=== PATIENT | female | born 1970 | race Caucasian/White ===

== ENCOUNTER 2017-09-30 15:10 | Emergency (ER) | payer BC ==
--- NOTE | 2017-09-30 19:08 | UC ---
Complaint Female HPI - HPI Summary HPI Summary: C/O lower abdominal pain with UTI symptoms over the last 4 days. Took 2 left over macrobid on sunday along with Azo without relief - History Of Current Complaint Chief Complaint: UCGU Stated Complaint: URINARY Time Seen by Provider: 09/30/17 19:01 Hx Obtained From: Patient Hx Last Menstrual Period: 09/25/17 ?: No Onset/Duration: Sudden Onset, Lasting Days - 4, Still Present Severity Initially: Mild Severity Currently: Moderate Character: Cramping Aggravating Factor(s): Urination Alleviating Factor(s): Meds Associated Signs And Symptoms: Negative: Fever, Back Pain Related Hx: Similar Episode/Dx as: - UTI - Allergies/Home Medications Allergies/Adverse Reactions: Allergies Allergy/AdvReac Type Severity Reaction Status Date / Time Moxifloxacin [From Avelox] AdvReac Severe Diarrhea Verified 09/30/17 18:54 Home Medications: Home Medications Biotin 5 mg PO 09/30/17 [History] Calcium 600 mg PO 09/30/17 [History] Cholecalciferol [Vitamin D] 1,000 unit PO 09/30/17 [History] Cranberry-Vitamin C [Azo Cranbery Urinary Trac 250-60 mg] 1 cap PO 09/30/17 [ History] Cyanocobalamin [Vitamin B-12] 1,000 mcg PO 09/30/17 [History] Escitalopram Oxalate [Lexapro 10 mg] 10 mg PO DAILY 09/30/17 [History Confirmed 09/30/17] Multiple Vitamin [Multi Vitamin] 1 tab PO 09/30/17 [History] Naproxen [Naprosyn 500 mg] 500 mg PO ONCE PRN 09/30/17 [History Confirmed ] Omeprazole 40 mg PO 09/30/17 [History] PMH/Surg Hx/FS Hx/Imm Hx Psychological History: Anxiety, Depression - Surgical History Surgical History: Yes Surgery Procedure, Year, and Place: gastric bypass 2012. L ovarian cysts removed. - Family History Known Family History: Positive: Hypertension Negative: Cardiac Disease, Diabetes - Social History Occupation: Employed Full-time Lives: With Family Alcohol Use: Occasionally Substance Use Type: None Smoking Status (MU): Never Smoked Tobacco Review of Systems Genitourinary: Dysuria, Frequency, Urgency Is Patient Immunocompromised?: No All Other Systems Reviewed And Are Negative: Yes Physical Exam Triage Information Reviewed: Yes Appearance: Well-Appearing, No Pain Distress, Well-Nourished Vital Signs: Initial Vital Signs Temp 98.6 F 09/30/17 18:46 Pulse 68 09/30/17 18:46 Resp 16 09/30/17 18:46 BP 116/62 09/30/17 18:46 Pulse Ox 98 09/30/17 18:46 Vital Signs Reviewed: Yes Eyes: Positive: Conjunctiva Clear Neck exam: Normal Respiratory Exam: Normal Cardiovascular Exam: Normal Abdomen Description: Negative: Nontender - suprapubic tenderness., CVA Tenderness (R), CVA Tenderness (L) Bowel Sounds: Positive: Present Musculoskeletal Exam: Normal Neurological Exam: Normal Psychological Exam: Normal Skin Exam: Normal Complaint Female Dx - Differential Dx/Diagnosis Differential Diagnosis/HQI/PQRI: Appendicitis, Endometriosis, Ureteral Stone, Urinary Tract Infection Provider Diagnoses: Acute cystitis without hematuria Discharge - Discharge Plan Condition: Stable Disposition: HOME Prescriptions: Sulfamethox/Trimethoprim DS* [Bactrim DS 800/160 TAB*] 1 tab PO BID #10 tab Patient Education Materials: Urinary Tract Infection in Women (ED), Sulfamethoxazole/Trimethoprim (By mouth) Referrals: Jefferson Broussard MD [Primary Care Provider] -
[2017-09-30] MEDS ORDERED: Sulfamethox/Trimethoprim DS 800/160* TAB PO ONE (19:09)
== END 2017-09-30 19:19 | disposition home or self-care (01) ==
LOC: UCCORT 15:10
DX: N30.00 Acute cystitis without hematuria (principal); F41.8 Other specified anxiety disorders; Z72.89 Other problems related to lifestyle
CPT/HCPCS: 87086; 99202; A9270-GY; G0463

== ENCOUNTER 2017-10-18 12:14 | Emergency (ER) | payer BC ==
[2017-10-18 15:38] VITALS: BP 124/78
--- NOTE | 2017-10-18 15:40 | UC ---
Complaint Female HPI - HPI Summary HPI Summary: 47F presents with dysuria and suprapubic pain for past two days. She has history of uti and states that feels the same. She denies any fever. She denies any nausea or vomiting. She denies any flank pain. She denies any vaginal discharge or chance has std. She took a dose of azo this morning which helped with the pain. She states she has been getting more frequent uti recently. She denies any diarrhea or constipation. medication reviewed - History Of Current Complaint Chief Complaint: UCGI Stated Complaint: URINARY Hx Last Menstrual Period: 09/25/17 Pain Intensity: 0 - Allergies/Home Medications Allergies/Adverse Reactions: Allergies Allergy/AdvReac Type Severity Reaction Status Date / Time moxifloxacin [From Avelox] Allergy Diarrhea Verified 10/18/17 15:35 PMH/Surg Hx/FS Hx/Imm Hx Endocrine History: Other Other Endocrine History: no DM Psychological History: Depression - Surgical History Surgical History: Yes Surgery Procedure, Year, and Place: gastric bypass 2012. L ovarian cysts removed. - Family History Known Family History: Positive: Hypertension Negative: Cardiac Disease, Diabetes - Social History Alcohol Use: Occasionally Substance Use Type: None Smoking Status (MU): Never Smoked Tobacco Review of Systems Constitutional: Negative Respiratory: Negative Cardiovascular: Negative Genitourinary: Dysuria, Urgency All Other Systems Reviewed And Are Negative: Yes Physical Exam Triage Information Reviewed: Yes Appearance: Well-Appearing Vital Signs: Initial Vital Signs Temp 98 F 10/18/17 15:33 Pulse 63 10/18/17 15:33 Resp 16 10/18/17 15:33 BP 124/78 10/18/17 15:33 Pulse Ox 100 10/18/17 15:33 Vital Signs Reviewed: Yes Eye Exam: Normal Respiratory: Positive: Lungs clear, Normal breath sounds Cardiovascular: Positive: RRR Abdomen Description: Positive: Nontender, Soft Bowel Sounds: Positive: Present Musculoskeletal Exam: Normal Neurological Exam: Normal Psychological Exam: Normal Skin Exam: Normal Complaint Female Dx - Course Course Of Treatment: 47F presents with dysuria and suprapubic pain for past two days. She has history of uti and states that feels the same. She denies any fever. She denies any nausea or vomiting. She denies any flank pain. She denies any vaginal discharge or chance has std. She took a dose of azo this morning which helped with the pain. She states she has been getting more frequent uti recently. She denies any diarrhea or constipation. on exam nontender abdomen, neg CVA tenderness. sent took azo will send for culture and treat presumptively. she denies any chance she is . will treat with bactrim. patient understand and agrees with plan. - Differential Dx/Diagnosis Differential Diagnosis/HQI/PQRI: Pelvic Inflammatory Disease, Sexually Transmitted Disease, Urinary Tract Infection Provider Diagnoses: uti Discharge - Discharge Plan Condition: Good Disposition: HOME Prescriptions: Phenazopyridine 200 mg (NF) [Pyridium 200 MG tab *] 200 mg PO TID #5 tab Sulfamethox/Trimethoprim DS* [Bactrim DS 800/160 TAB*] 1 tab PO BID #9 tab Patient Education Materials: Urinary Tract Infection in Women (ED) Referrals: Jeffesron Broussard MD [Primary Care Provider] - Jeromy Leyva MD [Medical Doctor] - Additional Instructions: will treat presumptively as uti as wait for cultures Take Bactrim twice a day for 5 days, first dose given in urgent Take pyridium three times a day with food for 2 days Follow up with primary A referral for urology was given Return to ED if develop fever, severe abdominal pain, nausea, or vomiting or any new or worsening symptoms
[2017-10-18] MEDS: Sulfamethox/Trimethoprim DS 800/160* TAB PO ONE (15:47)
--- NOTE | 2017-10-20 07:28 | UC ---
- Progress Note Progress Note: urine cx is neg. she can d/c bactrim and f/u with [facility] if sx persist. note reviewed, she took pyridium prior to sample, but no note of abx taken prior to cx. please call pt
== END 2017-10-18 15:50 | disposition home or self-care (01) ==
LOC: UCCORT 12:14
DX: N39.0 Urinary tract infection, site not specified (principal)
CPT/HCPCS: 87086; 99212; A9270-GY; G0463